=== PATIENT | female | born 2000 ===

== ENCOUNTER 2018-08-11 10:57 | Outpatient (CLI) | payer OTHER | END 2018-08-11 11:07 | disposition home or self-care (01) | LOC: RAD 10:57 | DX: M54.2 Cervicalgia (principal); M54.6 Pain in thoracic spine; M54.5 Low back pain ==

== ENCOUNTER 2024-12-30 13:28 | Emergency (ER) | payer OTHER ==
[~2024-12-30] VITALS: Ht 157.5 cm; Wt 49.9 kg
[2024-12-30] MEDS ORDERED: CEFTRIAXONE SODIUM 2,000 MG VIAL IV STA (14:45)
[2024-12-30] MEDS ORDERED: KETOROLAC TROMETHAMINE 60 MG VIAL IM STA (14:45)
[2024-12-30] MEDS ORDERED: AMOX-CLAV 875-1 EACH PO (17:29)
== END 2024-12-30 17:42 | disposition home or self-care (01) ==
LOC: ER 13:28
DX: H66.90 Otitis media, unspecified, unspecified ear (principal); J03.80 Acute tonsillitis due to other specified organisms